=== PATIENT | male | born 1945 | race Caucasian/White ===

== ENCOUNTER 2023-01-05 08:13 | Day surgery (SDC) | payer OTHER ==
[~2023-01-05] VITALS: Ht 180.3 cm; Wt 99.1 kg
[~2023-01-05 08:13] MED LIST: ALFU10 PO; ATOR20 PO; GABA300 PO; MULTI VITAMIN1 EACH PO; Naproxen250 MG PO; Omega 3 Fish O1 EACH PO; Omeprazole20 M1 PO; Percocet 5-3251 EACH PO; Viagra100 MG PO; Vitamin D400 UNI2 PO
[2023-01-05] MEDS ORDERED: Robaxin750 MG PO (08:46)
[2023-01-05 10:14] VITALS: BP 111/66
--- NOTE | 2023-01-05 10:44 | NUR ---
01/05/23 1044 Duncan Beth IV REMOVED INTACT. SITE WNL.
== END 2023-01-05 10:38 | disposition home or self-care (01) ==
LOC: ORSCSDS 08:13
PROVIDERS: Student in an Organized Health Care Education/Training Program
PROC: 08RJ3JZ Replacement of Right Lens with Synthetic Substitute, Percutaneous Approach (ICD-10-PCS; principal; 2023-01-05 09:30)
DX: H25.11 Age-related nuclear cataract, right eye (principal); Z96.1 Presence of intraocular lens; H52.201 Unspecified astigmatism, right eye; K21.9 Gastro-esophageal reflux disease without esophagitis; Z79.899 Other long term (current) drug therapy
CPT/HCPCS: J2250; J7040; V2632

== ENCOUNTER 2024-11-20 14:30 | Inpatient (IN) | payer OTHER ==
[~2024-11-20] VITALS: Ht 182.9 cm; Wt 96.7 kg
[~2024-11-20 14:30] MED LIST changes: +Robaxin750 MG PO
[2024-11-20 14:53] LABS: BASOPHILS ABSOLUTE AUTO 0.05 K/mm3 (0.00-0.23); BASOPHILS PERCENT AUTO 0 % (0-2); EOSINOPHILS ABSOLUTE AUTO 0.01 K/mm3 (0.00-0.68); EOSINOPHILS PERCENT AUTO 0 % (0-6); Hematocrit 44.3 % (37.0-53.0); Hemoglobin 15.0 g/dL (13.5-17.5); IMMATURE GRAN ABSOLUTE AUTO 0.18 K/mm3 (0.00-0.10); IMMATURE GRAN PERCENT AUTO 1 % (0-1); LYMPHOCYTES ABSOLUTE AUTO 1.83 K/mm3 (0.84-5.20); LYMPHOCYTES PERCENT AUTO 8 % (21-46); MONOCYTES ABSOLUTE AUTO 1.51 K/mm3 (0.16-1.47); MONOCYTES PERCENT AUTO 6 % (4-13); Mean Corpuscular HGB Conc 33.9 g/dL (31.5-36.5); Mean Corpuscular Volume 93 fL (80-100); NEUTROPHILS ABSOLUTE AUTO 19.88 K/mm3 (1.96-9.15); NEUTROPHILS PERCENT AUTO 85 % (41-73); NRBC ABSOLUTE 0.00 K/mm3 (0.00-0.02); NRBC Auto 0.0 /100 WBC (0.0-0.2); Platelet Count 243 K/mm3 (150-400); RDW Coefficient Variation 14.0 % (11.7-14.2); RDW Standard Deviation 47.5 fL (35.1-46.3)
[2024-11-20 15:18] LABS: Anion Gap 9.0 mmol/L (3-11); Blood Urea Nitrogen 19.0 mg/dL (8-24); CO2, Blood 27.0 mmol/L (21-32); Calcium, Blood 9.4 mg/dL (8.5-10.1); Chloride, Blood 105.0 mmol/L (98-108); Creatinine, Blood 0.94 mg/dL (0.60-1.20); Glucose, Blood 151.0 mg/dL (70-99); Magnesium, Blood 2.2 mg/dL (1.6-2.4); Potassium, Blood 5.7 mmol/L (3.5-5.5); Sodium, Blood 135.0 mmol/L (136-145)
[2024-11-20] MEDS ORDERED: NS 1,000 ML IV SCH ×2 (15:35→16:15)
[2024-11-20] MEDS ORDERED: HYDROmorphone HCl/Pf 1MG SYR IV PRN (16:15)
[2024-11-20] MEDS ORDERED: Ondansetron HCl 2 MG / ML 2ML Vial IV PRN (16:15)
[2024-11-20 19:57] VITALS: BP 164/76
--- NOTE | 2024-11-21 00:37 | NUR ---
ARRIVAL NOTE PT ARRIVED TO UNIT AT 192 TODAY VIA GURNEY, REQUIRED SLIDER AND TRANSFER ASSISTANCE TO HOSPITAL BED. ADMISSION RELATED TO TRAUMA FROM [facility] WITH SMALL LEFT SIDED PNEUMOTHRAX, MULT RIB FXS, AND HEAD TRAUMA. PT DENIES SOB, IS ON 4L HF WITH HUMIDIFICATION. RESPIRATIONS SHALLOW RELATED TO PAIN FROM RIB FX. SPO2 AT 98% DENIES NEED FOR PAIN MEDICATION, REPORTS EMPERATRIZ. ABRASION NOTED TO SCALP AND LLE X 2, OPEN TO AIR AND NO DRAINAGE NOTED. DENIES CHANGE IN COGNITION OR HEADACHE. CT AND XRAY COMPLETED PER ORDERS. ORIENTATION TO ROOM PROVIDED. PT AWAITING HOME MEDS LIST FROM SPOUSE IN MORNING. IS VERY [place], PLAN FOR TO BRING HEARING AIDES. HAS CALL LIGHT IN REACH AND BIOX IN PLACE.
[2024-11-21 04:01] VITALS: BP 156/80
--- NOTE | 2024-11-21 06:48 | NUR ---
SHIFT SUMMARY NO ACUTE CHANGES SINCE ARRIVAL TO UNIT. MEDICATED X1 WITH 1MG DILAUDID, PT TOLERATED WELL. APPEARS TO HAVE SLEPT T/O MOST OF SHIFT. RESP EVEN AND UNLABORED. ON 6L HF HUMIDIFIED, CONT BIOX IN PLACE WITH SPO2 AT 99%. DENIES SOB, ENCOURAGED DEEP BREATHING. PT ABLE TO DEMONSTRATE. IV 2X PATENT AND SL. VOIDING IN URINAL IND IN BED. AWAITING OOB SINCE ARRIVAL. PT CURRENTLY RESTING IN BED WITH EYES CLOSED AND RESP EVEN, HAS CALL LIGHT IN REACH. WILL GIVE REPORT TO ONCOMING RN
[2024-11-21 07:43] VITALS: BP 170/74
[2024-11-21] MEDS ORDERED: Labetalol HCL 5 MG/ML 4ML Injection (Single Dose) IV PRN (09:20)
[2024-11-21] MEDS ORDERED: FINA5 PO (11:12)
[2024-11-21] MEDS ORDERED: TOLTERODINE TART4 MG PO (11:13)
[2024-11-21] MEDS ORDERED: PREVAGEN PO (11:16)
[2024-11-21] MEDS ORDERED: DULO60 PO (11:17)
[2024-11-21] MEDS ORDERED: ALFUZOSIN HCL10 MG PO (11:19)
[2024-11-21] MEDS ORDERED: Methocarbamol500 MG PO ×2 (11:20→11:22)
[2024-11-21 14:27] VITALS: BP 173/89
[2024-11-21 16:10] LABS: BASOPHILS ABSOLUTE AUTO 0.02 K/mm3 (0.00-0.23); BASOPHILS PERCENT AUTO 0 % (0-2); EOSINOPHILS ABSOLUTE AUTO 0.01 K/mm3 (0.00-0.68); EOSINOPHILS PERCENT AUTO 0 % (0-6); Hematocrit 44.2 % (37.0-53.0); Hemoglobin 14.8 g/dL (13.5-17.5); IMMATURE GRAN ABSOLUTE AUTO 0.05 K/mm3 (0.00-0.10); IMMATURE GRAN PERCENT AUTO 0 % (0-1); LYMPHOCYTES ABSOLUTE AUTO 1.97 K/mm3 (0.84-5.20); LYMPHOCYTES PERCENT AUTO 15 % (21-46); MONOCYTES ABSOLUTE AUTO 1.43 K/mm3 (0.16-1.47); MONOCYTES PERCENT AUTO 11 % (4-13); Mean Corpuscular HGB Conc 33.5 g/dL (31.5-36.5); Mean Corpuscular Volume 94 fL (80-100); NEUTROPHILS ABSOLUTE AUTO 9.59 K/mm3 (1.96-9.15); NEUTROPHILS PERCENT AUTO 73 % (41-73); NRBC ABSOLUTE 0.00 K/mm3 (0.00-0.02); NRBC Auto 0.0 /100 WBC (0.0-0.2); Platelet Count 250 K/mm3 (150-400); RDW Coefficient Variation 14.2 % (11.7-14.2); RDW Standard Deviation 49.1 fL (35.1-46.3)
[2024-11-21 16:47] LABS: Anion Gap 1.0 mmol/L (3-11); Blood Urea Nitrogen 14.0 mg/dL (8-24); CO2, Blood 31.0 mmol/L (21-32); Calcium, Blood 9.9 mg/dL (8.5-10.1); Chloride, Blood 105.0 mmol/L (98-108); Creatinine, Blood 0.83 mg/dL (0.60-1.20); Glucose, Blood 132.0 mg/dL (70-99); Potassium, Blood 4.0 mmol/L (3.5-5.5); Sodium, Blood 133.0 mmol/L (136-145)
--- NOTE | 2024-11-21 17:23 | NUR ---
SUMMARY PT HAS BEEN PAINFUL T/O SHIFT. MEDICATED PER ORDERS FOR PAIN T/O DAY. PT DID NOT GET UP TODAY. STATED ATTEMPTED TO GET UP BUT COULD NOT D/T PAIN. SLEEPING AT THIS TIME. TITRATED 02 DOWN FROM 6L TO 3L DURING DAY. 02 SATS 98% AT THIS TIME. CALL LIGHT IN REACH.
[2024-11-21 19:19] VITALS: BP 151/83
[2024-11-21] MEDS ORDERED: DULoxetine HCL 60 MG Capsule DR PO SCH (21:00)
[2024-11-22 02:51] VITALS: BP 165/80
--- NOTE | 2024-11-22 04:15 | NUR ---
SHIFT SUMMARY NOC. PT ADMIT POST FALL FOR MULTIPLE RIB FX AND HEAD LAC. PT ON 2L VIA N/C WITH HUMIDIFIER AND CONT BIOX IN PLACE. NO DESAT EVENTS THIS SHIFT, BREATHING EVEN AND UNLABORED. PT MEDICATED FOR PAIN PER EMAR WITH REPORTED RELIEF OF SX. PT VOIDING URINE AND TOLERATING DIET. PT A/OX4, BED ALARM SET FOR SAFETY D/T HIGH FALL RISK. CALL LIGHT IN REACH.
[2024-11-22 05:14] LABS: BASOPHILS ABSOLUTE AUTO 0.02 K/mm3 (0.00-0.23); BASOPHILS PERCENT AUTO 0 % (0-2); EOSINOPHILS ABSOLUTE AUTO 0.02 K/mm3 (0.00-0.68); EOSINOPHILS PERCENT AUTO 0 % (0-6); Hematocrit 44.8 % (37.0-53.0); Hemoglobin 15.0 g/dL (13.5-17.5); IMMATURE GRAN ABSOLUTE AUTO 0.05 K/mm3 (0.00-0.10); IMMATURE GRAN PERCENT AUTO 0 % (0-1); LYMPHOCYTES ABSOLUTE AUTO 2.07 K/mm3 (0.84-5.20); LYMPHOCYTES PERCENT AUTO 17 % (21-46); MONOCYTES ABSOLUTE AUTO 1.40 K/mm3 (0.16-1.47); MONOCYTES PERCENT AUTO 12 % (4-13); Mean Corpuscular HGB Conc 33.5 g/dL (31.5-36.5); Mean Corpuscular Volume 95 fL (80-100); NEUTROPHILS ABSOLUTE AUTO 8.66 K/mm3 (1.96-9.15); NEUTROPHILS PERCENT AUTO 71 % (41-73); NRBC ABSOLUTE 0.00 K/mm3 (0.00-0.02); NRBC Auto 0.0 /100 WBC (0.0-0.2); Platelet Count 226 K/mm3 (150-400); RDW Coefficient Variation 14.1 % (11.7-14.2); RDW Standard Deviation 49.6 fL (35.1-46.3)
[2024-11-22 05:22] VITALS: BP 175/76
[2024-11-22 05:44] LABS: Anion Gap 8.0 mmol/L (3-11); Blood Urea Nitrogen 13.0 mg/dL (8-24); CO2, Blood 26.0 mmol/L (21-32); Calcium, Blood 9.1 mg/dL (8.5-10.1); Chloride, Blood 106.0 mmol/L (98-108); Creatinine, Blood 0.79 mg/dL (0.60-1.20); Glucose, Blood 110.0 mg/dL (70-99); Potassium, Blood 4.0 mmol/L (3.5-5.5); Sodium, Blood 136.0 mmol/L (136-145)
[2024-11-22 07:31] VITALS: BP 161/77
[2024-11-22 11:23] VITALS: BP 136/67
--- NOTE | 2024-11-22 11:25 | NUR ---
PATIENT UP TO CHAIR AFTER SHOWER AND SHORT WALK. 02 POST WALK WAS 95%.REFUSED SCDS.ENCOURAGED IS USE.
[2024-11-22] MEDS ORDERED: OXAYDO5 M1 PO (11:43)
--- NOTE | 2024-11-22 12:51 | NUR ---
ATTEMPTED TO CALL [facility] TO UPDATE ON PT'S DISCHARGE PLAN. LEFT VOICEMAIL.
[2024-11-22 14:23] VITALS: BP 151/74
--- NOTE | 2024-11-22 14:23 | NUR ---
TELE BOX RETURNED TO PCU.
--- NOTE | 2024-11-22 15:25 | NUR ---
DISCHARGE PT AND SPOUSE EDUCATED ON AND RECEIVED PRINTED DISCHARGE INSTRUCTIONS AND VERBALIZED AN UNDERSTANDING. JONATHAN STEINBERG'Edwina. HARD RX FOR ROXICODONE GIVEN TO PT AND SPOUSE. SPOUSE GATHERED ALL PERSONAL BELONGINGS. PT BEING ESCORTED OUT TO VEHICLE VIA W/C WITH SPOUSE TO DRIVE PT HOME. PLASTICS SCIENTIST NOTIFIED EARLIER THIS AFTERNOON ABOUT HOME HEALTH REFERRAL.
== END 2024-11-22 15:25 | disposition home health service (06) | DRG 200 ==
LOC: ER 14:30 → SURS 16:14
PROVIDERS: Emergency Medicine; Family Medicine; ADMIT Surgery
DX: S27.0XXA Traumatic pneumothorax, initial encounter (principal); S22.42XA Multiple fractures of ribs, left side, initial encounter for closed fracture; N40.0 Benign prostatic hyperplasia without lower urinary tract symptoms; F17.290 Nicotine dependence, other tobacco product, uncomplicated; S01.01XA Laceration without foreign body of scalp, initial encounter; D72.829 Elevated white blood cell count, unspecified; W08.XXXA Fall from other furniture, initial encounter; Y92.009 Unspecified place in unspecified non-institutional (private) residence as the place of occurrence of the external cause; Z96.643 Presence of artificial hip joint, bilateral; Z98.1 Arthrodesis status
CPT/HCPCS: 36415; 70450; 71045; 71260; 72125; 74177; 80048; 83735; 84132; 85025; 93005; 93010; 94762; 96374-59; 96375; 97110; 97116; 97162; 99285-25; A9270; J1171; J2405; J7030; Q9967